=== PATIENT | female | born 2000 | race Caucasian/White ===

== ENCOUNTER 2023-11-19 20:08 | Emergency (ER) | payer BC, MEDICAID, SELFPAY ==
[2023-11-19 20:21] VITALS: BP 131/87; PULSE 116; RESP 16; TEMP 36.7; O2SAT 96; BMI 31.8
--- NOTE | 2023-11-19 21:31 | W.ED.ALLEREA ---
HPI - Allergic Reaction General: Chief complaint: Allergic Reaction Stated complaint: skin reaction Time Seen by Provider: 11/19/23 21:09 Source: patient Mode of arrival: ambulatory Limitations: no limitations History of Present Illness: HPI narrative: 23-year-old female states she had area of redness on her left shoulder states it started out like a pimple and is grown states has been very warm to touch also pruritic in nature she denies any fevers. Denies any known allergic reaction she denies any worsening improving factors. Associated symptoms: Deny abdominal pain, nausea or vomiting Review of Systems Const: Denies: fever(s), chills, body aches or change in appetite ENMT: Denies: throat pain or dental pain Card: Denies: chest pain Resp: Denies: dyspnea GI: Denies: abdominal pain, nausea, vomiting or diarrhea Musc: Denies: neck pain or back pain Skin/Breast: Reports: pruritus and erythema; Denies: rash Neuro: Denies: headache(s) Physical Exam Const: COMMON NORMALS: no acute distress, patient oriented x3 and healthy appearing HENMT: COMMON NORMALS: normocephalic and atraumatic HEAD & SCALP: normocephalic and atraumatic Neck/C-Spine: COMMON NORMALS: full ROM and supple Chest: COMMONS NORMALS: normal inspection of the chest Resp: COMMON NORMALS: normal respiratory effort Cardio: COMMON NORMALS: regular rate, regular rhythm and No murmurs present (Cardio) RATE: regular rate RHYTHM: regular rhythm Extremity: COMMON NORMALS: normal to inspection and full ROM Neuro: COMMON NORMALS: patient oriented x3, moves all extremities and no focal motor deficits Psych: COMMON NORMALS: mental status grossly normal, Normal thought process present and cooperative THOUGHT PROCESS: Normal thought process present Skin: NARRATIVE SKIN EXAM: Erythema over left shoulder is very warm to touch no abscess formation Course Vital Signs: Vital signs: Vital Signs Temperature 98.1 F 11/19/23 20:21 Pulse Rate 116 H 11/19/23 20:21 Respiratory Rate 16 11/19/23 20:21 Blood Pressure 131/87 11/19/23 20:21 Pulse Oximetry 96 11/19/23 20:21 Oxygen Delivery Me thod Room Air 11/19/23 20:21 MDM - Allergic Reaction Medical Decision Making Patient presents here with a likely cellulitis to left shoulder it is pruritic did give her Decadron she is to take Benadryl as well is very warm to touch she has no signs of abscess formation we will give her Rocephin here and started on Keflex at home she is to follow-up with PCP in 4 to 7 days and return if worsening she understands agrees to plan. Medical Records I reviewed the patient's medical records. No radiology studies performed this visit Discharge Plan Discharge Patient Disposition: Home Clinical Impression: Cellulitis Condition: Stable Prescriptions: New cephalexin 500 mg capsule 500 mg PO TID 7 Days Qty: 21 0RF Discharge Orders: Discharge ED (Routine); Ordered 11/19/23 Ordered By: Jacqui Lopez Referrals: Mohamud Parr MD [Primary Care Provider] - 4-7 days Discharge Diet: Advance as tolerated Discharge Activity: Resume usual activity Patient Instructions: Cellulitis (ED) Coding Level of Care Code ED [place] Supervisor for Fermin Meyer
[2023-11-19] MEDS: diphenhydrAMINE 50 mg Capsule PO (21:49)
[2023-11-19] MEDS: dexamethasone 10 mg/mL INJ IM (21:50)
[2023-11-19] MEDS: cefTRIAXone 1,000 MG in water for injection-sterile 2.1 ML 2.1 MG IM (21:50)
== END 2023-11-19 22:02 | disposition home or self-care (01) ==
PROVIDERS: Emergency Provider Emergency Medicine; Family Provider Family Medicine; PCP Family Medicine
DX: L03.114 Cellulitis of left upper limb (principal)
CPT/HCPCS: 96372; 99284; J0696; J1100; Q0163